=== PATIENT | male | born 1990 | race Caucasian/White ===

== ENCOUNTER → 2021-06-14 17:38 | Outpatient (CLI) | payer BC, SELFPAY | LOC: SL 17:42 | DX: G47.30 Sleep apnea, unspecified (principal) | CPT/HCPCS: 95806 ==

== ENCOUNTER → 2021-11-14 | Outpatient (CLI) | payer BC, SELFPAY | END | disposition home or self-care (01) | LOC: SL 09:37 | PROVIDERS: Referring Provider Nurse Practitioner Acute Care; Visit Provider Nurse Practitioner Acute Care | DX: R06.83 Snoring (principal) | CPT/HCPCS: 95806 ==

== ENCOUNTER 2022-01-03 14:32 | Emergency (ER) | payer BC, SELFPAY ==
[2022-01-03 14:33] VITALS: BP 126/79; PULSE 83; RESP 15; TEMP 36.6; O2SAT 98; BMI 41.3
--- NOTE | 2022-01-03 14:54 | ED.VIS.BACK ---
HPI History of Present Illness Chief Complaint: Back Informant: patient Onset/Context/Timing Onset: Days (9 days) Narrative Narrative: Patient presents with right-sided back pain that started 9 days ago. He states he was at work pulling some large carts. He felt a sudden pop or pull in his right lower back with pain down his leg. He states his toes went numb for a few minutes. Pain seemed to pass and he continued to work. With exertion he would get increased pain. He states if he stands upright or lays down flat he does not have pain. With any flexion or extension of his back he has increased pain. He was seen by one of the trainers at work and told he had sciatica. He was given some stretches to do. Patient states he still having pain to this area and is wondering if he can have light duty until he can fully recover. Because of a history of drug addiction he does not want any medications. He states he is planning to go get some IcyHot patches that he can place on his back. [facility] Medical History Depression High cholesterol PTSD (post-traumatic stress disorder) Home Medications benztropine 1 mg tablet 1 mg PO HS 11/03/21 [History Last Taken Unknown] citalopram 20 mg tablet 20 mg PO DAILY 11/03/21 [History Last Taken Unknown] risperidone 3 mg tablet 3 mg PO QHS 11/03/21 [History Last Taken Unknown] Allergy/AdvReac Type Severity Reaction Status Date / Time No Known Allergies Allergy Verified 01/03/22 14:33 Social History Smoking Status: Former smoker pack-years: 5 Tobacco: How many years used: 5 Smokeless tobacco user: chewing tobacco how long ago did patient quit smoking: quit smoking about 7 years ago second hand exposure: No alcohol intake: never substance use type: does not use ROS ROS ED Constitutional Constitutional ED: Denies chills or fever(s) Eyes Eyes: Denies change in vision or discharge from eye(s) ENT ENT ED: Denies discharge from eye(s), rhinorrhea or sore throat Cardiovascular Cardiovascular: Denies chest pain or palpitations Respiratory/Chest Respiratory/Chest: Denies cough or dyspnea Gastrointestinal Gastrointestinal: Denies abdominal pain, diarrhea, nausea or vomiting Genitourinary Genitourinary ED: Denies difficulty urinating or dysuria Musculoskeletal Musculoskeletal: Reports back pain; Denies extremity pain Integumentary Denies Abrasions or rash Neurologic Neurologic: Denies headache(s) or weakness Allergic/Immunologic Allergic/Immunologic ED: Denies lip swelling or urticaria EXAM Physical Exam Const Vital Signs: 01/03/22 14:33 Temperature 97.8 F Temperature Source Temporal Pulse Rate 83 Respiratory Rate 15 Blood Pressure 126/79 H Blood Pressure Mean 94 Pulse Ox 98 Oxygen Delivery Method Room Air Positive well nourished and well developed General Appearance ED: well developed HEENT Reports normocephalic and head/scalp atraumatic Eyes PERRL and EOMs intact bilaterally Neck supple Chest Wall inspection of chest normal and palpation of chest normal Resp normal respiratory effort and clear to auscultation bilaterally Cardio regular rate and regular rhythm GI normal to inspection, nondistended, normoactive bowel sounds Palpation: soft Back/Spine Back/Spine Narrative: Reproducible tenderness in the right lumbar paraspinal muscles. No midline tenderness. Extremity Extremity Narrative: Patient able to stand at bedside without difficulty. Able to stand on tiptoes and heels normally. Good strength and sensation noted. Neuro oriented x3 and no sensory deficits noted Sensorium / Orientation: alert Motor Exam: strength 5/5 throughout Psych mental status grossly normal Skin no rashes or lesions noted MDM MDM MDM Narrative Medical decision making narrative: Patient wishes only for supportive care with topical patches. He is going to pick this up at the local store. He does not want a prescriptions. I will write him for work restrictions for the next 3 days. Discharge Plan Triage Chief Complaint: Back ED Provider: Medina Delaney Dx/Rx/DC Orders Clinical Impression: Back pain Instructions: ED Back Sprain/Strain Prescriptions: No Action risperidone 3 mg tablet 3 mg PO QHS Label Comments: TAKE 1 TAB BY MOUTH DAILY benztropine 1 mg tablet 1 mg PO HS citalopram 20 mg tablet 20 mg PO DAILY Label Comments: TAKE 1 TAB BY MOUTH DAILY Stand Alone Forms: Work Status Form Primary Care Provider: Care Physician,No Primary Referrals: Tracy Alejandro MD [Med Staff - Roving Machine Operator] - As Needed Care Physician,No Primary [Primary Care Provider] - Disposition Disposition: Home, Self Care
--- NOTE | 2022-01-03 15:06 | ED.RN ---
pt states that he is not filing workers comp.
== END 2022-01-03 15:07 | disposition home or self-care (01) ==
PROVIDERS: Emergency Provider Emergency Medicine; Visit Provider Emergency Medicine
DX: M54.50 Low back pain, unspecified (principal); F17.220 Nicotine dependence, chewing tobacco, uncomplicated
CPT/HCPCS: 99282

== ENCOUNTER → 2022-02-19 | Outpatient (CLI) | payer SELFPAY | END | disposition home or self-care (01) | PROVIDERS: Referring Provider Nurse Practitioner Acute Care; Visit Provider Nurse Practitioner Acute Care | DX: R06.83 Snoring (principal) | CPT/HCPCS: 95806 ==

== ENCOUNTER 2022-12-23 13:07 | Emergency (ER) | payer BC, SELFPAY ==
[2022-12-23 13:15] VITALS: BP 125/85; PULSE 92; RESP 16; TEMP 36.6; O2SAT 97; BMI 39.0
--- NOTE | 2022-12-23 13:30 | CT_ITS ---
EXAM: CT ANGIOGRAPHY NECK WITHOUT AND WITH INTRAVENOUS CONTRAST CLINICAL INDICATION: strangulation ATTEMPT TECHNIQUE: Routine carotid CT angiography protocol was performed without and with intravenous contrast. NASCET criteria using the distal ICAs for comparison were used for evaluation of stenoses. This CT exam was performed using one or more of the following dose reduction techniques: automated exposure control, adjustment of the mA and/or kV according to patient size, and/or use of iterative reconstruction technique. MIP reconstructed images were created and reviewed. CONTRAST: IV 100mL [id number] RADIATION DOSE: CTDIvol = 21.89 mGy, DLP = 651.11 mGy-cm COMPARISON: No relevant prior studies available. FINDINGS: VASCULATURE: RIGHT COMMON CAROTID ARTERY: Unremarkable. No occlusion or significant stenosis. No dissection. RIGHT INTERNAL CAROTID ARTERY: Unremarkable. Extracranial segment is patent with no occlusion or significant stenosis. No dissection. RIGHT EXTERNAL CAROTID ARTERY: Unremarkable. No occlusion. RIGHT VERTEBRAL ARTERY: Unremarkable. No occlusion or significant stenosis. No dissection. LEFT COMMON CAROTID ARTERY: Unremarkable. No occlusion or significant stenosis. No dissection. LEFT INTERNAL CAROTID ARTERY: There are no acute findings of the right and left internal carotid artery. ALL ABOVE CRITERIA BY NASCET. Extracranial segment is patent with no occlusion or significant stenosis. No dissection. LEFT EXTERNAL CAROTID ARTERY: Unremarkable. No occlusion. LEFT VERTEBRAL ARTERY: Unremarkable. No occlusion or significant stenosis. No dissection. BRACHIOCEPHALIC AND SUBCLAVIAN ARTERIES: Unremarkable as visualized. No occlusion or significant stenosis. NECK: BONES/JOINTS: There are degenerative findings of the cervical spine. 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 SOFT TISSUES: Unremarkable. LUNG APICES: Clear. OTHER FINDINGS: Post-processing of the angiographic images was performed, with axial imaging and 3D reconstruction. MIPS images were obtained. CAROTID STENOSIS REFERENCE USING NASCET CRITERIA: % ICA stenosis = (1 - narrowest ICA diameter/diameter of distal cervical ICA) x 100. Mild - <50% stenosis. Moderate - 50-69% stenosis. Severe - 70-94% stenosis. Near occlusion - 95-99% stenosis. Occluded - 100% stenosis. CT/CTA Neck W/WO Contrast IMPRESSION: There are no acute findings of the right and left internal carotid artery. ALL ABOVE CRITERIA BY NASCET. Electronically Signed: Deon Camilo MD at 14:42 EDT ,
--- NOTE | 2022-12-23 13:31 | EX.ED.VIS.PS ---
HPI HPI - Psych History of Present Illness Chief Complaint: Suicidal Detail of Chief Complaint: Attempted strangulation Informant: patient Narrative Narrative: Patient presents after attempting to strangle himself at home. He is upset because his asked for separation. Patient reportedly was sitting and tied a thick rope around his neck. He states the knot was at the front over his trachea. He states he did feel something pop in that area and now has pain when he swallows. He states he started to black out but did not completely lose consciousness. Patient is on medication for depression and anxiety. He states he has been on the same dose for quite some time. He states he feels better now but does admit that he needs help. [facility] Medical History Depression High cholesterol PTSD (post-traumatic stress disorder) Home Medications benztropine 1 mg tablet 1 mg PO HS 11/03/21 [History Last Taken Unknown] citalopram 20 mg tablet 20 mg PO DAILY 11/03/21 [History Last Taken Unknown] risperidone 3 mg tablet 3 mg PO QHS 11/03/21 [History Last Taken Unknown] Allergy/AdvReac Type Severity Reaction Status Date / Time No Known Allergies Allergy Verified 12/23/22 13:08 Social History Smoking Status: Former smoker pack-years: 5 Tobacco: How many years used: 5 Smokeless tobacco user: chewing tobacco how long ago did patient quit smoking: quit smoking about 7 years ago second hand exposure: No alcohol intake: never substance use type: does not use ROS ROS ED Constitutional Constitutional ED: Denies chills or fever(s) Eyes Eyes: Denies discharge from eye(s) ENT ENT ED: Denies discharge from eye(s), rhinorrhea or sore throat Cardiovascular Cardiovascular: Denies chest pain Respiratory/Chest Respiratory/Chest: Denies cough or dyspnea Gastrointestinal Gastrointestinal: Denies abdominal pain, nausea or vomiting Musculoskeletal Musculoskeletal: Reports neck pain; Denies back pain or extremity pain Integumentary Denies Abrasions or rash Neurologic Neurologic: Denies headache(s) or weakness Psychiatric Psychiatric: Denies anxiety or depression Allergic/Immunologic Allergic/Immunologic ED: Denies lip swelling or urticaria EXAM Physical Exam Const Vital Signs: 12/23/22 13:15 12/23/22 19:25 Temperature 97.8 F 97.2 F L Temperature Source Oral Temporal Pulse Rate 92 70 Respiratory Rate 16 16 Blood Pressure 125/85 H 119/71 Blood Pressure Mean 98 87 Pulse Ox 97 96 Oxygen Delivery Method Room Air Room Air Positive well nourished and well developed General Appearance ED: well developed HEENT Reports normocephalic and head/scalp atraumatic HEENT Narrative: Trachea midline. Patient speaks with a strong voice and tolerate secretions well. Eyes PERRL and EOMs intact bilaterally Neck supple Chest Wall inspection of chest normal and palpation of chest normal Resp normal respiratory effort and clear to auscultation bilaterally Cardio regular rate and regular rhythm GI normal to inspection, nondistended, normoactive bowel sounds Palpation: soft Extremity normal to inspection Neuro oriented x3 and no sensory deficits noted Sensorium / Orientation: alert Motor Exam: strength 5/5 throughout Psych mental status grossly normal Skin no rashes or lesions noted MDM MDM MDM Narrative Medical decision making narrative: Lab work obtained for psychiatric clearance. Given his strangulation attempt a CTA of the neck is also obtained. History & Record Review Discussion w/independent historian: Patient Additional record(s) reviewed:: Prior ED visit Lab Data Attestation: I reviewed the patient's lab results. Labs: Laboratory Results - last 24 hr 12/23/22 13:52 WBC 9.1 RBC 5.04 Hgb 14.8 Hct 44.5 MCV 88.3 MCH 29.4 MCHC 33.3 RDW Std Deviation 38.0 RDW Coeff of Iraj 11.9 Plt Count 286 MPV 10.4 Immature Gran % (Auto) 0.400 Neut % (Auto) 69.5 Lymph % (Auto) 17.8 L Lamar % (Auto) 8.1 Eos % (Auto) 3.6 Baso % (Auto) 0.6 Absolute Neuts (auto) 6.3 Absolute Lymphs (auto) 1.61 Nucleated RBC % 0 Sodium 138 Potassium 3.7 Chloride 105 Carbon Dioxide 28.0 Anion Gap 5 BUN 12 Creatinine 1.01 Estim Creat Clear Calc 119.76 Est GFR (MDRD) Af Amer 110 Est GFR (MDRD) Non-Af 91 BUN/Creatinine Ratio 11.9 Glucose 99 Calcium 8.6 Urine Opiates Screen NEGATIVE Urine Methadone Screen NEGATIVE Ur Barbiturates Screen NEGATIVE Ur Phencyclidine Scrn NEGATIVE Ur Amphetamines Screen NEGATIVE MDMA (Ecstasy) Screen NEGATIVE U Benzodiazepines Scrn NEGATIVE Urine Cocaine Screen NEGATIVE U Cannabinoids Screen NEGATIVE Ur Drug Screen Comment Ethyl Alcohol < 3.0 Radiography Diagnostic Testing: Clinical Impression(s) from Imaging Studies Neck CTA 12/23/22 13:30 IMPRESSION: There are no acute findings of the right and left internal carotid artery. ALL ABOVE CRITERIA BY NASCET. Electronically Signed: Deon Camilo MD at 14:42 EDT , Treatment and Re-Evaluation Narrative: CBC reveals normal white count 9.1 with a hemoglobin of 14.8. Differential is unremarkable. Chemistry studies are normal. EtOH is negative and tox screen is negative. CTA of the neck reveals no acute findings. COVID test is negative. Staff member from the counseling center presented and evaluate the patient. She is recommending placement given the patient's gesture. I am in agreement. [place]dido slip has been signed and we are waiting placement at this time. Patient be signed out to oncoming physician for further observation. He has been cooperative with me during my shift. Discharge Plan Triage Chief Complaint: Suicidal ED Provider: Medina Delaney Dx/Rx/DC Orders Clinical Impression: Suicide gesture Prescriptions: No Action risperidone 3 mg tablet 3 mg PO QHS Patient Comments: TAKE 1 TAB BY MOUTH DAILY benztropine 1 mg tablet 1 mg PO HS citalopram 20 mg tablet 20 mg PO DAILY Patient Comments: TAKE 1 TAB BY MOUTH DAILY Primary Care Provider: Care Physician,No Primary Referrals: [facility] Doctor,Out of [Non-Staff] - Disposition Disposition: Psychiatric Hospital or Unit
[2022-12-23 14:01] LABS: Absolute Lymphocyte Count 1.61 X10^3/uL (0.83-4.51); Absolute Neutrophil Count 6.3 X10^3/uL (2.0-7.7); Basophil# 0.05 X10^3/uL; Basophil% 0.6 % (0-1); Eosinophil# 0.33 X10^3/uL; Eosinophils% 3.6 % (0-5); Hematocrit 44.5 % (40-54); Hemoglobin 14.8 g/dL (13.0-16.5); Lymphocyte # 1.61 X10^3/ul (0.83-4.51); Lymphocyte % 17.8 % (19-41); Mean Corp Hgb Conc 33.3 g/dL (32-36); Mean Corpuscular Hgb 29.4 pg (27.0-32.0); Mean Corpuscular Volume 88.3 fL (80-94); Mean Platelet Vol. 10.4 fl (6.2-12.0); Monocyte# 0.73 X10^3/uL; Monocyte% 8.1 % (0-10); NRBC Flagged by Analyzer 0 % (0-5); Neutrophil # 6.29 X10^3/uL (2.7-7.7); Neutrophil % 69.5 % (47-70); Platelet Count 286 K/mm3 (150-450); RBC Distribution Width CV 11.9 % (11.6-14.6); Red Blood Count 5.04 M/mm3 (4.6-6.2); White Blood Count 9.1 K/mm3 (4.4-11.0)
[2022-12-23 14:12] LABS: Anion Gap 5 (5-15); BUN 12 mg/dL (7-18); BUN/Creat Ratio 11.9 RATIO (10-20); Calcium,Total 8.6 mg/dL (8.5-10.1); Chloride 105 mmol/L (98-107); Creatinine, Serum 1.01 mg/dL (0.70-1.30); EST Glomerular Filtration Rate 91 mL/min (>60); Est Glom Filt Rate - Afr Amer 110 mL/min (>60); Estimated Creatinine Clearance 119.76 ml/min; Glucose 99 mg/dL (74-106); Potassium 3.7 mmol/L (3.5-5.1); Sodium Level 138 mmol/L (136-145)
[2022-12-23 14:29] LABS: Amphetamine Urine VISTA NEGATIVE (<1000 ng/mL); Barbiturate Urine VISTA NEGATIVE (< 200 ng/mL); Benzodiazepine Urine VISTA NEGATIVE (< 200 ng/mL); Cocaine Urine VISTA NEGATIVE (< 300 ng/mL); Ecstacy Urine VISTA NEGATIVE (< 500 ng/mL); Methadone Urine VISTA NEGATIVE (< 300 ng/mL); PCP Urine VISTA NEGATIVE (< 25 ng/mL); THC Urine VISTA NEGATIVE (< 50 ng/mL); Vista UDS pH Range 5
[2022-12-23 14:36] LABS: Alcohol, Blood (Medical)-Serum < 3.0 mg/dL
--- NOTE | 2022-12-23 18:25 | ED.RN ---
Patient pleasant, dinner tray given.
[2022-12-23 19:25] VITALS: BP 119/71; PULSE 70; RESP 16; TEMP 36.2; O2SAT 96
[2022-12-23 21:00] VITALS: PULSE 78; RESP 14; O2SAT 98
[2022-12-23 22:00] VITALS: RESP 16; O2SAT 98
--- NOTE | 2022-12-23 22:54 | EKG12_ITS ---
Test Reason : [facility] Blood Pressure : / mmHG Vent. Rate : 059 BPM Atrial Rate : 059 BPM P-R Int : 130 ms QRS Dur : 094 ms QT Int : 424 ms P-R-T Axes : 008 011 002 degrees QTc Int : 419 ms Sinus bradycardia Otherwise normal ECG Confirmed by MELISSA LIRA, ELTON ([id number]), marketing editor EAN BALL ([id number]) on 12/25/2022 12:45:25 PM Referred By: VEENA Confirmed By:ELTON TORRES MD
[2022-12-23 23:43] VITALS: BP 120/75; PULSE 58; RESP 14; O2SAT 96
[2022-12-23 23:49] VITALS: BP 120/75; PULSE 58; RESP 14; O2SAT 96
== END 2022-12-24 02:15 ==
PROVIDERS: Emergency Provider Emergency Medicine; Visit Provider Emergency Medicine
DX: T14.91XA Suicide attempt, initial encounter (principal); Z87.891 Personal history of nicotine dependence; X58.XXXA Exposure to other specified factors, initial encounter
CPT/HCPCS: 70498; 80048; 80307; 82077; 85025; 87811; 93005; 99285; Q9967; A4216